=== PATIENT | female | born 1950 | race Caucasian/White ===

== ENCOUNTER 2019-01-14 15:00 | Outpatient (RCR) | payer MEDICARE, MEDICAID, SELFPAY ==
--- NOTE | 2019-01-07 15:44 | HMH.PTOPWND ---
Rehab Outpt Wound Evaluation Rehab OP Wound Evaluation Start: 01/07/19 13:45 Freq: Status: Active Protocol: Document 01/07/19 15:37 MESHA (Rec: 01/07/19 15:44 PHORNE [id number]) Electronically Signed By Josué Arguelles, PT 01/07/19 15:37 Subjective/History History History Pt is 68 yowf who presents with c/o poor healing right posterior heel laceration x ~ 3 wks. She reports initial injury happened when her metal storm door hit the back of her heel. She came to ED and the laceration underwent primary intention closure with sutures. Since that time the sutures have been removed and the wound has slightly re- opened. She reports tenderness to palpation and was unable to wear her cam walking boot due to the increased sensitivity in the heel. PMH: HL, COPD, asthma, RA, and currently smoker. Subjective Subjective Pt c/o tenderness to palpation , but no pain at rest. Wound Eval Wound Right Posterior Heel Wound Type Laceration Is This a Chronic Wound No Wound Length (cm) 0.5 Wound Width (cm) 3.3 Wound Bed Appearance Yellow Percentage of Eschar (Yellow) (%) 100 Wound Margins Description Well Defined Surrounding Tissue Appearance [place] Drainage Description Serosanguineous Drainage Amount Scant Drainage Odor No Odor Dressing Status Changed Wound Topical Solution/Irrigant Saline Irrigant Primary Dressing Composite Comment optifoam gentle thin Wound Secondary Dressing Type Gauze Roll/Wrap,Adhering Gauze Roll Wound Debridement Method Gauze Wound Debridement Amount of Tissue Minimal Removed Dressing Change Patient Tolerance Tolerated Well Wound Problems/Impairments Impairments Problems/Impairmments Palpation Tenderness,Impaired Walking,Increased Edema,Wound Care Needs,Subjective C/O Pain ,Impaired Self Care/Self Management Prognosis Rehab Potential Good Clinical Impression Consistent with Diagnosis Yes Short Term
== END 2019-01-14 15:05 | disposition home or self-care (01) ==
LOC: PT 15:00
PROVIDERS: Visit Provider Orthopaedic Surgery
DX: S91.311A Laceration without foreign body, right foot, initial encounter (principal)
CPT/HCPCS: 97162; 97597

== ENCOUNTER → 2021-03-12 11:47 | Outpatient (CLI) | payer MEDICARE, MEDICAID, SELFPAY ==
[2021-03-12 14:39] LABS: Vitamin B12 762 pg/mL (239-931)
[2021-03-12 14:46] LABS: Folate > 20.00 ng/mL
== END ==
PROVIDERS: Visit Provider Specialist
DX: R42 Dizziness and giddiness (principal); S06.0X9A Concussion with loss of consciousness of unspecified duration, initial encounter
CPT/HCPCS: 36415; 82607; 82746

== ENCOUNTER → 2021-03-21 12:30 | Outpatient (CLI) | payer MEDICARE, MEDICAID, SELFPAY ==
--- NOTE | 2021-03-21 12:35 | MR_ITS ---
PROCEDURE: MR HEAD/BRAIN WO CON CLINICAL INDICATION: CONCUSSION WITHOUT LOSS OF CONSCIOUSNESS Headache dizziness and blurred vision COMPARISON: MR BRW/O MRI-BRAIN W/O from 04/18/2015 TECHNIQUE: Routine multiplanar multi echo sequences are performed without gadolinium enhancement. FINDINGS: No midline shift mass effect intracranial hemorrhage or acute infarction. The cerebellopontine angles and cerebellum have an unremarkable appearance. There are few scattered T2 white matter hyperintensities in the alfredo. Diffuse T2 white matter hyperintensities are present which have progressed compared to 04/14/2015 most commonly related to ischemic gliotic changes from small vessel disease. These do not demonstrate restricted diffusion. The pituitary, optic chiasm, corpus callosum, and craniocervical junction have an unremarkable appearance. No mastoid effusion. Small retention cyst is present in the sphenoid sinus posteriorly on the right. There is moderate rightward nasal septal deviation as before IMPRESSION: Progression of T2 white matter hyperintensities consistent with progression of microangiopathic changes. Differential diagnosis would include demyelinating process although very uncommon in this age group. No acute infarction or intracranial hemorrhage. Dictated by: Tee Fox MD 03/22/2021 08:42 Tee Fox MD in [place] 03/22/2021 08:42
== END ==
PROVIDERS: PCP Nurse Practitioner Family; Visit Provider Nurse Practitioner Family
DX: S06.0X0D Concussion without loss of consciousness, subsequent encounter (principal)
CPT/HCPCS: 70551